=== PATIENT | female | born 1980 | race Caucasian/White ===

== ENCOUNTER 2018-04-04 05:27 | Emergency (ER) | payer SELFPAY ==
[~2018-04-04] VITALS: Ht 160 cm; Wt 83.4 kg
[2018-04-04 05:32] VITALS: BP 115/81; PULSE 70; RESP 16; Ht 160 cm; Wt 83.4 kg
--- NOTE | 2018-04-04 06:00 | ERD ---
ER Documentation Chief Complaint Chief Complaint skin rash on chest and bilateral legs x 2 days with cough HPI This is a 37-year-old female who presents here in emergency department with co mplaints of cough for about 3 days, rashes to chest, breast folds, bilateral armpits, bilateral antecubital area for about 2 days. LMP: Last week. A0. Denies headache, head injury, loss of consciousness, dizziness, neck pain, neck stiffness, throat pain, difficulty swallowing, difficulty breathing lying flat, shoulder pain, chest pain, back pain, abdominal pain, nausea, vomiting, constipation, diarrhea, urinary symptoms, or possibility being , loss of bowel and bladder control, trauma, injury, falls, difficulty walking due to pain, numbness or tingling sensation, calf pain, recent travel, recent major surgery in the last 3 weeks, calf pain, recent long travel, recent exposure to any illness, recent antibiotic use in the last 3 months, fever, chills, seizures. ROS All systems reviewed and are negative except as per history of present illness. Medications Home Meds Active Scripts Loratadine* (Loratadine*) 10 Mg Tablet, 10 MG PO DAILY, #30 TAB Prov:NATASHA BYRD F 04/04/18 Prednisone* (Prednisone*) 20 Mg Tab, 40 MG PO DAILY for 4 Days, TAB Prov:PASILANATASHA STEPHENS F 04/04/18 Guaifenesin-Dextromethorphan* (Robafen* DM) 100MG/10MG/5ML Liquid, 5 ML PO Q6H PRN for COUGH, #160 ML Prov:NATASHA BYRD 04/04/18 Acetaminophen* (Tylenol*) 325 Mg Tablet, 2 TAB PO Q6 PRN for PAIN AND OR ELEVATED TEMP, #40 TAB Prov:LOUANNILANATASHA STEPHENS F 04/04/18 Hydroxyzine Hcl* (Hydroxyzine Hcl*) 50 Mg Tablet, 50 MG PO Q6H PRN for ITCHING, #30 TAB Prov:PASILANATASHA STEPHENS F 04/04/18 Allergies Allergies: Coded Allergies: amoxicillin (Verified Allergy, Unknown, 04/04/18) ibuprofen (Verified Allergy, Unknown, 04/04/18) PMhx/Soc History of Surgery: No (EYE SURGERY,LEFT FOOT SURGERY) Anesthesia Reaction: No Hx Neurological Disorder: No Hx Respiratory Disorders: Yes (ASTHMA) Hx Cardiac Disorders: No Hx Psychiatric Problems: No Hx Miscellaneous Medical Probl: No Hx Alcohol Use: Yes Hx Substance Use: No Hx Tobacco Use: No Physical Exam Vitals Vital Signs Date Temp Pulse Resp B/P (MAP) Pulse Ox O2 O2 Flow FiO2 Time Delivery Rate 04/04/18 98.1 70 16 115/81 99 05:32 (92) Physical Exam Const: No acute distress Head: Atraumatic Eyes: Normal Conjunctiva ENT: Normal External Ears, Nose and Mouth. Neck: Full range of motion. No meningismus. Resp: Clear to auscultation bilaterally Cardio: Regular rate and rhythm, no murmurs Abd: Soft, non tender, non distended. Normal bowel sounds Skin: No petechiae. Pruritic rash to chest, breast folds, bilateral antecubital area. Examined with female governor assembler, Keven BONILLA. Back: No midline or flank tenderness Ext: No cyanosis, or edema Neur: Awake and alert Psych: Normal Mood and Affect Procedures/MDM Diagnostic tests: Clinical exam. Treatment: NA. Re-evaluation: NA. Differential diagnosis I have low suspicion for chicken pox, anaphylactic shock, Larry Rambo syndrome. Final diagnosis: Cough. Pruritic dermatitis. Rash. Prescription: Claritin. Hydroxyzine. Prednisone. Robafen. Follow-up with PCP in the next 24-48 hours. PCP to refer patient to or assistant in the next 3-4 days if symptoms persist. Come back here in the emergency department for any new symptoms or any worsening symptoms. All questions and concerns were answered. Patient and family members verbalized understanding and agreed with plan of care. Hemodynamically stable on discharge. Departure Diagnosis: Primary Impression: Rash Additional Impression: Cough Condition: Stable Additional Instructions: Follow-up with PCP in the next 24-48 hours. PCP to refer patient to or assistant in the next 3-4 days if symptoms persist. Come back here in the emergency department for any new symptoms or any worsening symptoms. NATASHA BYRD Apr 04, 2018 06:00
[2018-04-04] MEDS ORDERED: HYDR50TA15 PO (06:06)
[2018-04-04] MEDS ORDERED: ACET325T33 PO (06:06)
[2018-04-04] MEDS ORDERED: GUAI-227 PO (06:07)
[2018-04-04] MEDS ORDERED: PRED20TA PO (06:07)
[2018-04-04] MEDS ORDERED: LORA10TA3 PO (06:08)
== END 2018-04-04 06:19 | disposition home or self-care (01) ==
LOC: FTE 05:27
DX: L30.8 Other specified dermatitis (principal); R05 Cough; J45.909 Unspecified asthma, uncomplicated
CPT/HCPCS: 99283